=== PATIENT | female | born 1990 ===

== ENCOUNTER 2018-06-09 12:59 | Emergency (ER) | payer OTHER ==
[2018-06-09 13:20] VITALS: BP 145/84; PULSE 75; RESP 16; TEMP 99; O2SAT 99
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
== END 2018-06-09 14:28 | disposition home or self-care (01) ==
LOC: C.ER 12:59
DX: S00.83XA Contusion of other part of head, initial encounter (principal); W22.8XXA Striking against or struck by other objects, initial encounter; Y92.89 Other specified places as the place of occurrence of the external cause; Y99.0 Civilian activity done for income or pay